=== PATIENT | female | born 1945 | race Two or more races ===

== ENCOUNTER 2018-04-14 17:19 | Emergency (ER) | payer MEDICAID ==
[~2018-04-14] VITALS: Ht 154.9 cm; Wt 68.5 kg
[~2018-04-14 17:19] MED LIST: BENA1TAB14 PO; METO50TA7 PO; NOR5T PO; SIMV20TA5 PO
[2018-04-14 18:30] VITALS: BP 138/82
== END 2018-04-14 18:32 | disposition home or self-care (01) ==
LOC: ER 17:19
DX: H81.10 Benign paroxysmal vertigo, unspecified ear (principal); I10 Essential (primary) hypertension; E78.00 Pure hypercholesterolemia, unspecified; Z79.899 Other long term (current) drug therapy
CPT/HCPCS: 99284

== ENCOUNTER 2020-09-18 15:54 | Emergency (ER) | payer MEDICAID ==
[~2020-09-18] VITALS: Ht 154.9 cm; Wt 66.4 kg
[~2020-09-18 15:54] MED LIST changes: +SIMV-42 PO; -SIMV20TA5 PO
[2020-09-18 16:11] VITALS: BP 134/62
--- NOTE | 2020-09-18 18:20 | NUR ---
Pt.'s son is translating for pt.
--- NOTE | 2020-09-18 18:40 | NUR ---
Pt. states she is feeling better, symptoms are resolving. Pt. asking through son, who is interpreting, if her symptoms could be caused by poor sleep and poor diet. Pt. reports recent poor sleep and poor oral intake.
[2020-09-18 20:15] LABS: BASOPHILS % (AUTO) 0.3 % (0-1); EOSINOPHILS # (AUTO) 0.1 X10'3 (0-0.9); EOSINOPHILS % (AUTO) 1.3 % (0-6); HEMATOCRIT 35.7 % (35.0-45.0); HEMOGLOBIN 11.7 g/dl (12.0-16.0); LYMPHOCYTES # (AUTO) 1.6 X10'3 (1.1-4.8); LYMPHOCYTES % (AUTO) 29.4 % (21-51); MEAN CORPUSCULAR HEMOGLOBIN 28.9 PG (27.0-31.0); MEAN CORPUSCULAR HGB CONC 32.8 g/dL (33.0-36.5); MEAN PLATELET VOLUME 9.5 FL (7.4-10.4); MONOCYTES # (AUTO) 0.4 X10'3 (0-0.9); MONOCYTES % (AUTO) 8.3 % (2-12); NEUTROPHILS # (AUTO) 3.3 X10'3 (1.8-7.7); NEUTROPHILS % (AUTO) 60.7 % (42-75); PLATELET COUNT 222 X10'3 (140-440); RED BLOOD COUNT 4.06 X10'6 (4.20-5.60); RED CELL DISTRIBUTION WIDTH 13.9 % (11.5-14.5); WHITE BLOOD COUNT 5.4 X10'3 (4.5-11.0)
[2020-09-18 20:32] LABS: ALANINE AMINOTRANSFERASE 33 U/L (12-78); ALBUMIN 3.8 G/DL (3.4-5.0); ALBUMIN/GLOBULIN RATIO 1.1 (1.1-1.5); ALKALINE PHOSPHATASE 80 IU/L (46-116); ANION GAP 14 (8-16); ASPARTATE AMINO TRANSFERASE 21 U/L (10-37); BILIRUBIN,TOTAL 0.3 MG/DL (0.1-1.0); BLOOD UREA NITROGEN 30 MG/DL (7-18); BUN/CREATININE RATIO 25.6 (6.6-38.0); CALCIUM 9.2 MG/DL (8.5-10.1); CHLORIDE 102 MMOL/L (99-107); CREATININE 1.17 MG/DL (0.40-0.90); GLUCOSE 245 MG/DL (70-104); POTASSIUM 3.6 MMOL/L (3.5-5.1); SODIUM 141 MMOL/L (135-145); TOTAL CARBON DIOXIDE 25.5 MMOL/L (24-32); TOTAL PROTEIN 7.4 G/DL (6.4-8.2); eGFR 45 ML/MIN
[2020-09-18 21:19] LABS: CLARITY,URINE CLEAR (Clear); COLOR,URINE YELLOW (Yellow); GLUCOSE, URINE 250 mg/dl (Neg); KETONES,URINE TRACE mg/dl (Neg); LEUKOCYTE ESTERASE ,URINE TRACE (Neg); NITRITES, URINE NEGATIVE (Neg); OCCULT BLOOD,URINE NEGATIVE (Neg); PROTEIN,URINE NEGATIVE (Neg)
[2020-09-18 21:21] LABS: UA COLLECTION TYPE CLN CATCH MIDSTREAM
[2020-09-18 21:26] LABS: BACTERIA,URINE FEW /HPF (Neg); MUCUS STRANDS FEW /LPF (Neg); RBC,URINE 0-2 /HPF (0-2); SQUAMOUS EPITHELIAL CELL,UR FEW /LPF (FEW); WBC,URINE 0-4 /HPF (0-4)
== END 2020-09-18 22:06 | disposition home or self-care (01) ==
LOC: ER 15:54
DX: E11.65 Type 2 diabetes mellitus with hyperglycemia (principal); E78.00 Pure hypercholesterolemia, unspecified; I10 Essential (primary) hypertension; E21.3 Hyperparathyroidism, unspecified; Z79.899 Other long term (current) drug therapy
CPT/HCPCS: 36415; 80053; 81001; 82948; 85025; 87088; 99283

== ENCOUNTER 2022-03-02 11:57 | Emergency (ER) | payer MEDICAID ==
[~2022-03-02] VITALS: Ht 157.5 cm; Wt 70.0 kg
[2022-03-02 12:50] VITALS: BP 149/75
== END 2022-03-02 16:42 | disposition home or self-care (01) ==
LOC: ER 11:57
DX: T18.9XXA Foreign body of alimentary tract, part unspecified, initial encounter (principal); E78.00 Pure hypercholesterolemia, unspecified; I10 Essential (primary) hypertension; E11.9 Type 2 diabetes mellitus without complications; E21.3 Hyperparathyroidism, unspecified; Z79.899 Other long term (current) drug therapy; X58.XXXA Exposure to other specified factors, initial encounter; Y93.89 Activity, other specified; Y92.89 Other specified places as the place of occurrence of the external cause; Y99.8 Other external cause status
CPT/HCPCS: 74018; 99283